=== PATIENT | female | born 1970 | race American Indian/Alaskan Native ===

== ENCOUNTER 2018-02-05 07:03 | Outpatient (CLI) | payer OTHER ==
--- NOTE | 2018-02-08 13:45 | Mammography Report ---
BILATERAL DIGITAL SCREENING MAMMOGRAM with CAD : 02/05/18 07:03:00 CLINICAL: Routine screening. COMPARISON:07/28/16 FINDINGS: The breasts are heterogeneously dense, which may obscure small masses.Bilateral scattered benign calcifications. No mass, architectural distortion or suspicious calcifications. IMPRESSION: No mammographic evidence of malignancy. BI-RADS CATEGORY: 2 -- Benign RECOMMENDATION: Routine mammographic screening in one year. COMMENT: Patient follow-up letters are generated by our [employer] application.
== END 2018-02-05 07:04 | disposition home or self-care (01) ==
LOC: MAMMO 07:03
PROVIDERS: ATTEND Internal Medicine
DX: Z12.31 Encounter for screening mammogram for malignant neoplasm of breast (principal)
CPT/HCPCS: 77067

== ENCOUNTER 2019-02-15 06:58 | Outpatient (CLI) | payer OTHER ==
--- NOTE | 2019-02-16 09:31 | Mammography Report ---
BILATERAL DIGITAL SCREENING MAMMOGRAM with CAD: 02/15/19 06:58:00 CLINICAL: Routine screening. COMPARISON:02/05/18, 07/28/16 and 11/08/14 FINDINGS: The breasts are heterogeneously dense, which may obscure small masses.Bilateral scattered benign calcifications are unchanged compared to previous exams. No mass, architectural distortion or suspicious calcifications. IMPRESSION: No mammographic evidence of malignancy. BI-RADS CATEGORY: 2 - - Benign RECOMMENDATION: Routine mammographic screening in one year. COMMENT: Patient follow-up letters are generated by our [employer] application.
== END 2019-02-15 06:59 | disposition home or self-care (01) ==
LOC: MAMMO 06:58
PROVIDERS: ATTEND Internal Medicine
DX: Z12.31 Encounter for screening mammogram for malignant neoplasm of breast (principal)
CPT/HCPCS: 77067

== ENCOUNTER 2020-08-09 13:57 | Outpatient (CLI) | payer OTHER ==
--- NOTE | 2020-08-10 09:35 | Mammography Report ---
DIGITAL SCREENING MAMMOGRAM WITH CAD, 08/09/2020 INDICATION: Routine screening mammography. TECHNIQUE: Digital bilateral 2D mammography was obtained in the craniocaudal and mediolateral obliq ue projections. This examination was interpreted with the benefit of Computer-Aided Detection analysi s. COMPARISON: Prior mammograms 02/15/2019 and 02/05/2018 FINDINGS: Breast Density: The breasts are heterogeneously dense, which may obscure small masses. There is no evidence of dominant mass, suspicious calcifications or architectural distortion in eithe r breast. There are stable benign-appearing calcifications with scattered distribution seen in both b reasts. There has been no significant change compared with the prior examinations. IMPRESSION: Follow up recommendation: Routine yearly BI-RADS Category 2: Benign. A "normal" or negative report should not discourage follow up or biopsy of a clinically significant f inding. A written summary of these findings will be mailed to the patient. The patient will be entered into a mammography reporting system which will generate a reminder letter for the patient's next appointmen t at the appropriate interval. The [employer] recommends yearly mammograms starting at age 40 and continuing as l miguel ángel as a woman is in good health. Breast MRI is recommended for women with an approximate 20-25% or greater lifetime risk of breast cancer, including women with a strong family history of breast or ova ambrosio cancer or who have been treated for Hodgkin's disease. Signer Name: Mariela Newby MD Signed: 08/10/2020 9:30 AM Workstation Name: [id number]
== END 2020-08-09 13:58 | disposition home or self-care (01) ==
LOC: MAMMO 13:57
PROVIDERS: ATTEND Internal Medicine
DX: Z12.31 Encounter for screening mammogram for malignant neoplasm of breast (principal)
CPT/HCPCS: 77067

== ENCOUNTER 2021-08-22 14:29 | Outpatient (CLI) | payer OTHER ==
--- NOTE | 2021-08-23 11:00 | Mammography Report ---
DIGITAL SCREENING MAMMOGRAM WITH CAD, 08/22/2021 CLINICAL INFORMATION / INDICATION: Routine screening mammography. SCREENING MAMMOGRAM TECHNIQUE: Digital bilateral 2D mammography was obtained in the craniocaudal and mediolateral obliqu e projections. This examination was interpreted with the benefit of Computer-Aided Detection analysis . COMPARISON: 08/09/2020 FINDINGS: Breast Density: The breasts are heterogeneously dense, which may obscure small masses. No dominant mass, suspicious calcifications, or architectural distortion in either breast. IMPRESSION: No mammographic evidence of malignancy. Follow up recommendation: Routine yearly BI-RADS Category 1: Negative. A "normal" or negative report should not discourage follow up or biopsy of a clinically significant f inding. A written summary of these findings will be mailed to the patient. The patient will be entered into a mammography reporting system which will generate a reminder letter for the patient's next appointmen t at the appropriate interval. The [employer] recommends yearly mammograms starting at age 40 and continuing as l miguel ángel as a woman is in good health. Breast MRI is recommended for women with an approximate 20-25% or greater lifetime risk of breast cancer, including women with a strong family history of breast or ova ambrosio cancer or who have been treated for Hodgkin's disease. Signer Name: David Lopez MD Signed: 08/23/2021 10:56 AM Workstation Name: [id number]
== END 2021-08-22 14:30 | disposition home or self-care (01) ==
LOC: MAMMO 14:29
PROVIDERS: ATTEND Internal Medicine
DX: Z12.31 Encounter for screening mammogram for malignant neoplasm of breast (principal)
CPT/HCPCS: 77067